=== PATIENT | male | born 1990 ===

== ENCOUNTER 2017-02-27 12:50 | Observation (INO) | payer OTHER ==
[2017-02-27] VITALS (11 sets, daily range): BP systolic 138–162; BP diastolic 68–89; PULSE 48–71; TEMP 99
[~2017-02-27] VITALS: Ht 170.2 cm; Wt 77.5 kg
[2017-02-28] VITALS: BP 136/85; PULSE 65
[2017-02-28 01:00] VITALS: BP 157/99; PULSE 54; TEMP 99.4
[2017-02-28 05:01] VITALS: BP 107/47; PULSE 64; TEMP 97.8
[2017-02-28 10:27] VITALS: BP 114/59; PULSE 72; TEMP 98
== END 2017-02-28 11:48 | disposition home or self-care (01) ==
LOC: SURG 12:50 → SDCO 12:50 → SURG 14:15
DX: N20.2 Calculus of kidney with calculus of ureter (principal)
CPT/HCPCS: C1769; G0378; G0379; J1885; J2704; J3010; J7030; Q9967